=== PATIENT | male | born 1970 | race Two or more races ===

== ENCOUNTER 2018-02-25 10:28 | Outpatient (CLI) | payer OTHER ==
[~2018-02-25 10:28] MED LIST: SYNTHROID50 MCG
== END 2018-02-25 10:53 | disposition home or self-care (01) ==
LOC: RAD 10:28 → MRI 11:15
DX: M54.5 Low back pain (principal); M46.1 Sacroiliitis, not elsewhere classified; M62.830 Muscle spasm of back; M54.2 Cervicalgia; M54.6 Pain in thoracic spine
CPT/HCPCS: 72148

== ENCOUNTER → 2019-04-03 | Outpatient (CLI) | payer OTHER | END | disposition home or self-care (01) | LOC: RAD 10:22 | DX: I20.8 Other forms of angina pectoris (principal); I25.10 Atherosclerotic heart disease of native coronary artery without angina pectoris ==

== ENCOUNTER 2019-11-13 08:01 | Outpatient (CLI) | payer OTHER | END 2019-11-13 08:04 | disposition home or self-care (01) | LOC: RAD 08:01 | DX: S29.9XXA Unspecified injury of thorax, initial encounter (principal) ==

== ENCOUNTER 2020-02-17 11:40 | Outpatient (CLI) | payer OTHER | END 2020-02-17 11:46 | disposition home or self-care (01) | LOC: RAD 11:40 | PROVIDERS: ATTEND Physical Medicine & Rehabilitation | DX: M54.2 Cervicalgia (principal); M54.6 Pain in thoracic spine ==

== ENCOUNTER → 2020-02-23 | Outpatient (CLI) | payer OTHER | END | disposition home or self-care (01) | LOC: MRI 13:13 | PROVIDERS: ATTEND Physical Medicine & Rehabilitation | DX: M54.12 Radiculopathy, cervical region (principal) | CPT/HCPCS: 72141 ==